=== PATIENT | male | born 1995 ===

== ENCOUNTER 2024-03-26 13:23 | Emergency (ER) | payer SELFPAY ==
[~2024-03-26] VITALS: Ht 182.9 cm; Wt 93.0 kg
[2024-03-26] MEDS ORDERED: Diphth,Pertuss(Acell),Tet Vac 0.5 ML VIAL IM ONE (14:05)
== END 2024-03-26 15:49 | disposition home or self-care (01) ==
LOC: ER 13:23
DX: S71.112A Laceration without foreign body, left thigh, initial encounter (principal); W26.0XXA Contact with knife, initial encounter; Z88.0 Allergy status to penicillin
CPT/HCPCS: 12002; 90471; 90715; 99282-25